=== PATIENT | male | born 1975 | race Caucasian/White ===

== ENCOUNTER → 2017-12-16 | Outpatient (CLI) | payer OTHER ==
--- NOTE | 2017-12-16 08:18 | MR ---
EXAMINATION TYPE: MR lumbar spine wo con DATE OF EXAM: 12/16/2017 COMPARISON: NONE HISTORY: Low back pain with radiculopathy per order. Back and leg pain for a few years with pain into left buttocks per patient. TECHNIQUE: Multiplanar, multisequence imaging of the lumbar spine is performed without IV contrast. FINDINGS: Sagittal images of the lumbar spine show vertebral body heights to appear satisfactory. A f ew scattered prominent Schmorl nodes in the upper to mid lumbar spine endplates are noted. There is s ubtle grade 1 retrolisthesis of L5 on S1 measuring roughly 4 to 5 mm. The intervertebral discs demons trate normal heights and hydration. No suspicious posterior disc herniations are seen on sagittal im ages. The conus medullaris is normal in position and signal ending at labeled mid L1 level. The bone marrow signal intensity is within normal limits. Axial images at the L1-L2 level shows mild broad disc bulge minimally effacing anterior thecal sac, b ilateral neural foramina are patent. Axial images at the L2-L3 level show mild to moderate broad disc bulge mildly effacing anterior theca l sac, bilateral neural foramina are patent. Axial images at L3-L4 level show mild broad disc bulge minimally effacing anterior thecal sac, bilate ral neural foramina are patent. Axial images at the L4-L5 level show mild broad disc bulge minimally effacing anterior spinal canal, bilateral neural foramina are patent. Axial images at the L5-S1 level show subtle spondylolisthesis and mild broad disc bulge and mild face t degenerative changes bilaterally. Spinal canal is preserved. Bilateral neural foramina are patent. Paraspinal muscle bulk is maintained. No suspicious retroperitoneal findings are seen. IMPRESSION: Multilevel mild degenerative changes with most prominent disc herniation L2-L3 level. No significant focal disc herniation is seen to account for radiculopathy type symptoms however.
== END ==
LOC: RADMRIMAIN 07:04
PROVIDERS: ATTEND Family Medicine
DX: M51.16 Intervertebral disc disorders with radiculopathy, lumbar region (principal); M47.26 Other spondylosis with radiculopathy, lumbar region
CPT/HCPCS: 72148